=== PATIENT | female | born 1990 | race African-American/Black ===

== ENCOUNTER 2017-01-24 23:28 | Emergency (ER) | payer SELFPAY ==
[~2017-01-24] VITALS: Ht 165.1 cm; Wt 65.0 kg
[~2017-01-24 23:28] MED LIST: KCL20 PO
[2017-01-24 23:36] VITALS: BP 129/79; PULSE 81; RESP 20; TEMP 97.9; O2SAT 97
[2017-01-24] MEDS ORDERED: POTA-163 PO (23:44)
[2017-01-25] MEDS ORDERED: SODIUM CHLORIDE 0.9% FLUSH 5 ML FLUSH IVF PRN (00:15)
[2017-01-25] MEDS ORDERED: SODIUM CHLOR 0.9% 1000 ML INJ 1,000 ML IV ONE (00:15)
[2017-01-25] MEDS ORDERED: methylPREDNISolone SOD SUCC 125 MG/2 ML VIAL IVP ONE (00:15)
[2017-01-25] MEDS: RESP: ALBUTEROL 2.5 MG/IPRATROPIUM 0.5 MG NEB (SCH) INH (00:25)
[2017-01-25] MEDS ORDERED: cefTRIAXone INJ 1,000 MG in SODIUM CHLORIDE 0.9% INJ 100 ML IV ONE (00:30)
--- NOTE | 2017-01-25 00:30 | RADRPT ---
EXAM DATE/TIME: 01/25/2017 00:16 [place] COMPARISON: CHEST SINGLE AP, January 23, 2016, 8:13. INDICATIONS : Shortness of breath. MEDICAL HISTORY : Asthma. SURGICAL HISTORY : None. ENCOUNTER: Initial ACUITY: 1 day PAIN SCORE: 0/10 LOCATION: Bilateral chest FINDINGS: A single view of the chest demonstrates the lungs to be symmetrically aerated without evidence of mas s, infiltrate or effusion. The cardiomediastinal contours are unremarkable. Osseous structures are intact. CONCLUSION: No acute disease. Kt White MD on January 25, 2017 at 0:28 Board Certified Radiologist. This report was verified electronically.
[2017-01-25 00:31] LABS: AUTOMATED NEUTROPHIL # 3.2 TH/MM3 (1.8-7.7); BASOPHIL % 0.5 % (0.0-2.0); EOSINOPHIL # 0.6 TH/MM3 (0-0.4); EOSINOPHIL % 8.4 % (0.0-4.0); HEMATOCRIT 41.8 % (35.0-46.0); HEMO FLAGS DIFF FINAL; LYMPH % 41.7 % (9.0-44.0); LYMPHOCYTE # 3.1 TH/MM3 (1.0-4.8); MEAN CELL VOLUME 88.9 FL (80.0-100.0); MEAN CORPUSCULAR HEMOGLOBIN 30.4 PG (27.0-34.0); MEAN CORPUSCULAR HGB CONC 34.2 % (32.0-36.0); MONO % 5.6 % (0.0-8.0); NEUT % 43.8 % (16.0-70.0); PLATELET COUNT 229 TH/MM3 (150-450); RED CELL DISTRIBUTION WIDTH 14.1 % (11.6-17.2); WHITE BLOOD COUNT 7.3 TH/MM3 (4.0-11.0)
[2017-01-25 00:39] VITALS: O2SAT 99
--- NOTE | 2017-01-25 01:04 | PD ---
HPI Chief Complaint: Respiratory Symptoms Time Seen by Provider: 23:38 Travel History International Travel<30 days: No Contact w/Intl Traveler<30days: No Traveled to known affect area: No History of Present Illness HPI The patient is a 26 year old female who presents to the [facility] emergency department with a history of 1-1/2 weeks of congestion, a productive cough, and shortness of breath. The patient reports that today she ran out of her albuterol nebulizer solution and her rescue inhaler as she has been having to use them much more frequently over the last week and a half. She reports that she has had a clear rhinorrhea. She reports that she does suffer with seasonal allergies that seem to have been worse recently. She reports that her cough is at times productive of clear sputum. The patient denies any recent fevers, neck pain, shortness of breath, abdominal pain, vomiting, diarrhea, urinary symptoms, or neurologic symptoms. LMP: Ended today, started 5 days ago PFSH Past Medical History Narrative Medical The patient's past medical history is significant for allergic rhinitis, asthma. Asthma: Yes Diminished Hearing: No Respiratory: Yes (ASTHMA) Immunizations Current: Yes Influenza Vaccination: No ?: Not LMP: 01/20/17 Menopausal: No : 4 Para: 1 Miscarriage: 1 : 1 Past Surgical History Narrative Surgical The patient reports having a tendon in her right foot repaired. Social History Alcohol Use: Yes Tobacco Use: No Substance Use: No Allergies-Medications (Allergen,Severity, Reaction): Coded Allergies: Cat Dander (Verified Allergy, Severe, 01/24/17) Cultivated Oat Pollen (Verified Allergy, Severe, 01/24/17) Seafood (Verified Allergy, Severe, Swelling, 01/24/17) CRUSTACHEANS Reported Meds & Prescriptions Reported Meds & Active Scripts Active Albuterol Neb (Albuterol Sulfate) 2.5 Mg/3 Ml Neb 2.5 Mg NEB Q4-6H PRN While awake Proair Respiclick Inh (Albuterol Sulfate) 90 Mcg/Act Aerp 2 Puff INH Q4-6H PRN Loratadine 10 Mg Tab 10 Mg PO DAILY 10 Days Medrol Dosepak (Methylprednisolone) 4 Mg Dspk 4 Mg PO DIRECTED Per Pharmacist direction Reported Potassium Chloride ER (Potassium Chloride) 20 Meq Tab 20 Meq PO BID Review of Systems Except as stated in HPI: all other systems reviewed are Neg General / Constitutional: No: Fever Eyes: No: Visual changes HENT: Positive: Rhinitis, Rhinorrhea, Congestion, No: Headaches Cardiovascular: Positive: Dyspnea on exertion, No: Chest Pain or Discomfort Respiratory: Positive: Cough, Shortness of Breath, Wheezing Gastrointestinal: No: Abdominal Pain Genitourinary: No: Dysuria Musculoskeletal: No: Pain Skin: No Rash Neurologic: No: Weakness Psychiatric: No: Depression Endocrine: No: Polydipsia Hematologic/Lymphatic: No: Easy Bruising Physical Exam Narrative General: The patient is a well-developed well-nourished female in no acute distress. Head and Neck exam: Head is normocephalic atraumatic. Eyes: EOMI, pupils are equal round and reactive to light. Nose: Midline septum with pink mucous membranes Mouth: Dentition unremarkable. Moist mucus membranes. Posterior oropharynx is not erythematous. No tonsillar hypertrophy. Uvula midline. Airway patent. Neck: No palpable lymphadenopathy. No nuchal rigidity. No thyromegaly. Cardiovascular: Regular rate and rhythm without murmurs, gallops, or rubs. Lungs: Expiratory wheezes are audible anteriorly and posteriorly with accessory muscle use. No tripoding. The patient does have conversational dyspnea. No paroxysmal abdominal breathing. No crackles or rhonchi audible. Abdomen: Soft, without tenderness to palpation in all 4 quadrants of the abdomen. No guarding, rebound, or rigidity. Normal bowel sounds are audible. Extremities: No clubbing, cyanosis, or edema. 2+ pulses in all 4 extremities. No calf tenderness on palpation. Back: No spinous process tenderness to palpation. No costovertebral angle tenderness to palpation. Neurologic Exam: Grossly nonfocal. Skin Exam: No rash noted. Intact skin that is warm and dry. Data Data Last Documented VS Vital Signs Date Time Temp Pulse Resp B/P Pulse Ox O2 Delivery O2 Flow Rate FiO2 01/25/17 00:39 99 Nasal Cannula 2 01/24/17 23:36 97.9 81 20 129/79 Orders Chest, Single Ap (01/24/17 23:58) Complete Blood Count With Diff (01/25/17 00:14) Basic Metabolic Panel (Bmp) (01/25/17 00:14) Iv Access Insert/Monitor (01/25/17 00:14) Ecg Monitoring (01/25/17 00:14) Oximetry (01/25/17 00:14) Oxygen Administration (01/25/17 00:14) Sodium Chloride 0.9% Flush (Ns Flush) (01/25/17 00:15) Methylprednisolone So Succ Inj (Solumedr (01/25/17 00:15) Albuterol-Ipratropium Neb (Duoneb Neb) (01/25/17 00:15) C-Reactive Protein (Crp) (01/25/17 00:14) Magnesium (Mg) (01/25/17 00:14) Sodium Chlor 0.9% 1000 Ml Inj (Ns 1000 M (01/25/17 00:15) Ceftriaxone Inj (Rocephin Inj) (01/25/17 00:30) Labs Laboratory Tests Test 01/25/17 00:20 White Blood Count 7.3 TH/MM3 Red Blood Count 4.70 MIL/MM3 Hemoglobin 14.3 GM/DL Hematocrit 41.8 % Mean Corpuscular Volume 88.9 FL Mean Corpuscular Hemoglobin 30.4 PG Mean Corpuscular Hemoglobin 34.2 % Concent Red Cell Distribution Width 14.1 % Platelet Count 229 TH/MM3 Mean Platelet Volume 10.4 FL Neutrophils (%) (Auto) 43.8 % Lymphocytes (%) (Auto) 41.7 % Monocytes (%) (Auto) 5.6 % Eosinophils (%) (Auto) 8.4 % Basophils (%) (Auto) 0.5 % Neutrophils # (Auto) 3.2 TH/MM3 Lymphocytes # (Auto) 3.1 TH/MM3 Monocytes # (Auto) 0.4 TH/MM3 Eosinophils # (Auto) 0.6 TH/MM3 Basophils # (Auto) 0.0 TH/MM3 CBC Comment DIFF FINAL Differential Comment Sodium Level 140 MEQ/L Potassium Level 4.0 MEQ/L Chloride Level 104 MEQ/L Carbon Dioxide Level 27.7 MEQ/L Anion Gap 8 MEQ/L Blood Urea Nitrogen 15 MG/DL Creatinine 0.97 MG/DL Estimat Glomerular Filtration 85 ML/MIN Rate Random Glucose 75 MG/DL Calcium Level 9.1 MG/DL Magnesium Level 2.0 MG/DL C-Reactive Protein LESS THAN 0.29 MG/DL MDM Medical Decision Making Medical Screen Exam Complete: Yes Emergency Medical Condition: Yes Medical Record Reviewed: Yes Interpretation(s) Last Impressions Chest X-Ray 01/24/17 0971 Signed Impressions: Service Date/Time: Wednesday, January 25, 2017 00:16 - CONCLUSION: No acute disease. Kt White MD Differential Diagnosis Bronchitis related asthma exacerbation, versus pneumonia, versus allergy related asthma exacerbation. Narrative Course During the course of the patients emergency department visit, the patients history, examination, and differential diagnosis were reviewed with the patient. The patient had IV access obtained and blood work sent for analysis. The patient states on a telemetry monitor with oximetry and blood pressure monitoring. The patient was provided Solu-Medrol 125 mg IV, Rocephin 1 g IV, DuoNeb 3. The patient on reexamination reports feeling improved, her wheezing has resolved. The patients laboratory studies were reviewed and remarkable for a CBC that is unremarkable except for an eosinophilia of 8.4, BNP is unremarkable, C-reactive protein less than 0.29. The knees and 2.0 Radiology studies were reviewed and remarkable for a chest x-ray that shows no acute abnormality. The patient is resting comfortably and feels better, is alert and in no distress. The patients results and examination findings were discussed with her. The repeat examination is unremarkable and benign. The history, exam, diagnostic testing, and current condition do not suggest any significant pathology to warrant further testing, continued ED treatment, admission, or surgical evaluation at this point. The vital signs have been stable. The patient does not have uncontrollable pain, intractable vomiting, or other significant symptoms. The patient's condition is stable and appropriate for discharge. The patient will pursue further outpatient evaluation with a primary care physician or other designated or consulting physician as indicated in the discharge instructions. The patient expressed understanding and was agreeable with this plan. Diagnosis Primary Impression: Asthma Qualified Code: J45.41 - Moderate persistent asthma with acute exacerbation Additional Impression: Seasonal allergies Qualified Code: J30.1 - Seasonal allergic rhinitis due to pollen Referrals: Primary Care Physician 2 days Patient Instructions: Allergies (ED), Asthma (ED), General Instructions Med/Other Pt SpecificInfo: Prescription(s) given Scripts Albuterol Neb 2.5 Mg/3 Ml Neb2.5 Mg NEB Q4-6H PRN (WHEEZING) #1 BOX Ref 0 While awake Prov:Mercedez Lawson MD 01/25/17 Albuterol Powder Inh (Proair Respiclick Inh)90 Mcg/Act Aerp2 Puff INH Q4-6H PRN (SHORTNESS OF BREATH) #1 INHALER Ref 0 Prov:Mercedez Lawson MD 01/25/17 Loratadine 10 Mg Tab10 Mg PO DAILY 10 Days Ref 0 Prov:Mercedez Lawson MD 01/25/17 Methylprednisolone Dosepak (Medrol Dosepak)4 Mg Dspk4 Mg PO DIRECTED #1 DSPK Ref 0 Per Pharmacist direction Prov:Mercedez Lawson MD 01/25/17 Disposition: 01 DISCHARGE HOME Condition: Stable Mercedez Lawson MD Jan 25, 2017 01:04
[2017-01-25 01:08] LABS: ANION GAP 8 MEQ/L (5-15); BICARBONATE 27.7 MEQ/L (21.0-32.0); BLOOD UREA NITROGEN 15 MG/DL (7-18); CHLORIDE 104 MEQ/L (98-107); GLOMERULAR FILTRATION RATE 85 ML/MIN (>89); SODIUM (NA) 140 MEQ/L (136-145)
[2017-01-25] MEDS ORDERED: ALBU1AER5 INH (02:15)
[2017-01-25] MEDS ORDERED: LORA10TA PO (02:15)
[2017-01-25] MEDS ORDERED: MEDR4PAK PO (02:15)
[2017-01-25] MEDS ORDERED: ALBU0.08 NEB (02:15)
== END 2017-01-25 02:31 | disposition home or self-care (01) ==
LOC: NEPE 23:28
DX: J45.909 Unspecified asthma, uncomplicated (principal); J30.1 Allergic rhinitis due to pollen; T78.49XA Other allergy, initial encounter; X58.XXXA Exposure to other specified factors, initial encounter
CPT/HCPCS: 71010; 80048; 83735; 85025; 86140; 94640; 94664; 96365; 96375; 99283; J0696; J2930; J7030

== ENCOUNTER 2017-03-19 22:43 | Emergency (ER) | payer MEDICAID, OTHER ==
[~2017-03-19] VITALS: Ht 165.1 cm; Wt 60.0 kg
[~2017-03-19 22:43] MED LIST changes: +ALBU0.08 NEB; +ALBU1AER5 INH; -KCL20 PO; +LORA10TA PO; +MEDR4PAK PO; +POTA-163 PO
[2017-03-19 22:45] VITALS: BP 116/63; PULSE 81; RESP 15; TEMP 98.7; O2SAT 99
[2017-03-19] MEDS ORDERED: ONDANSETRON ODT 4 MG TAB PO ONE (23:15)
[2017-03-19 23:38] LABS: BACTERIA, URINE RARE /hpf; BLOOD, URINE NEG (NEG); COMMENT (UR) CULTURE INDICATED; CULTURE IF INDICATED CULTURE INDICATED; GLUCOSE,URINE NEG (NEG); HYALINE CAST, URINE 1 /lpf (RARE); KETONE, URINE 10 mg/dL (NEG); MUCUS URINE FEW /lpf (OCC); NITRITE,URINE NEG (NEG); SQUAMOUS EPITHELIAL CELL URINE 5 /hpf (0-5); URINE COLOR YELLOW (YELLW/STRAW)
[2017-03-19] MEDS ORDERED: MACR100C2 PO (23:43)
[2017-03-19] MEDS ORDERED: ZOFR8TAB4 SL (23:43)
--- NOTE | 2017-03-19 23:44 | PD ---
HPI Chief Complaint: Related Problem Time Seen by Provider: 23:09 Travel History International Travel<30 days: No Contact w/Intl Traveler<30days: No Traveled to known affect area: No History of Present Illness HPI Patient is a 26-year-old at approximately 8 weeks based on LMP here with complaint of nausea, vomiting and urinary frequency. Patient has had frequent emesis throughout her . This is different from her previous 2 pregnancies. No abdominal pain, spotting or bleeding. Patient also notes 2 days of small volume urinary frequency but no hematuria, abdominal pain or flank pain. No fevers or chills. She has an appointment with Dr. Barrios in one week [facility] Past Medical History Asthma: Yes Diminished Hearing: No Respiratory: Yes (ASTHMA) Immunizations Current: Yes ?: Menopausal: No : 4 Para: 1 Miscarriage: 1 : 1 Social History Alcohol Use: Yes (usually, not when ) Tobacco Use: No Substance Use: No Allergies-Medications (Allergen,Severity, Reaction): Coded Allergies: Cat Dander (Verified Allergy, Severe, 03/19/17) Cultivated Oat Pollen (Verified Allergy, Severe, 03/19/17) Seafood (Verified Allergy, Severe, Swelling, 03/19/17) CRUSTACHEANS Reported Meds & Prescriptions Reported Meds & Active Scripts Active Zofran Odt (Ondansetron Odt) 8 Mg Tab 8 Mg SL Q8H PRN Macrobid (Nitrofurantoin Monoh/Nitrofur Macro) 100 Mg Cap 100 Mg PO BID 7 Days Albuterol Neb (Albuterol Sulfate) 2.5 Mg/3 Ml Neb 2.5 Mg NEB Q4-6H PRN While awake Proair Respiclick Inh (Albuterol Sulfate) 90 Mcg/Act Aerp 2 Puff INH Q4-6H PRN Review of Systems Except as stated in HPI: all other systems reviewed are Neg Physical Exam Narrative GENERAL: Well-appearing female in no acute distress SKIN: Focused skin assessment warm/dry. HEAD: Normocephalic. EYES: No scleral icterus. No injection or drainage. ENT: Mucous membranes pink and moist. NECK: Supple CARDIOVASCULAR: Regular rate and rhythm. RESPIRATORY: No accessory muscle use. GASTROINTESTINAL: Abdomen soft, non-tender, nondistended. MUSCULOSKELETAL: No obvious deformities. No edema. NEUROLOGICAL: Awake and alert. Normal speech. PSYCHIATRIC: Appropriate mood and affect; insight and judgment normal. Data Data Last Documented VS Vital Signs Date Time Temp Pulse Resp B/P Pulse Ox O2 Delivery O2 Flow Rate FiO2 03/19/17 22:45 98.7 81 15 116/63 99 Room Air Orders Urinalysis - C+S If Indicated (03/19/17 23:09) Ondansetron Odt (Zofran Odt) (03/19/17 23:15) Urine Culture (03/19/17 22:15) Labs Laboratory Tests Test 03/19/17 22:15 Urine Color YELLOW Urine Turbidity HAZY Urine pH 6.0 Urine Specific [place] 1.025 Urine Protein 30 mg/dL Urine Glucose (UA) NEG mg/dL Urine Ketones 10 mg/dL Urine Occult Blood NEG Urine Nitrite NEG Urine Bilirubin NEG Urine Urobilinogen 2.0 MG/DL Urine Leukocyte Esterase LARGE Urine RBC 17 /hpf Urine WBC 69 /hpf Urine Squamous Epithelial 5 /hpf Cells Urine Bacteria RARE /hpf Urine Hyaline Casts 1 /lpf Urine Mucus FEW /lpf Microscopic Urinalysis Comment CULTURE INDICATED MDM Medical Decision Making Medical Screen Exam Complete: Yes Emergency Medical Condition: Yes Medical Record Reviewed: Yes Differential Diagnosis 26-year-old female approximately 8 weeks based on LMP here with nausea , vomiting urinary frequency. Differential includes associated nausea , hyperemesis, UTI and less likely pyelonephritis Narrative Course Patient given Zofran with improvement of her symptoms and able to tolerate liquids. Urinalysis positive for urinary tract infection. Patient will be to his Zofran, Macrobid for home and outpatient OB follow-up in one week as scheduled Diagnosis Primary Impression: Nausea and vomiting during prior to 22 weeks gestation Additional Impression: Urinary tract infection affecting Referrals: [facility] call for appointment Additional Instructions: Zofran as needed for nausea, vomiting. Finish antibiotics as prescribed. Follow-up with [facility] to establish care for this and return to the ER for the warning signs discussed. Med/Other Pt SpecificInfo: Prescription(s) given Scripts Ondansetron Odt (Zofran Odt)8 Mg Tab8 Mg SL Q8H PRN (NAUSEA OR VOMITING) #20 TAB Ref 0 Prov:Haylee Diop MD 03/19/17 Nitrofurantoin Monohydrate Macrocrystals (Macrobid)100 Mg [id number] Mg PO BID 7 Days Ref 0 Prov:Haylee Diop MD 03/19/17 Disposition: 01 DISCHARGE HOME Condition: Stable Haylee Diop MD March 19, 2017 23:44
== END 2017-03-20 00:37 | disposition home or self-care (01) ==
LOC: NEPD 22:43
DX: O21.9 Vomiting of pregnancy, unspecified (principal); O23.41 Unspecified infection of urinary tract in pregnancy, first trimester; J45.909 Unspecified asthma, uncomplicated; Z3A.01 Less than 8 weeks gestation of pregnancy; B95.7 Other staphylococcus as the cause of diseases classified elsewhere
CPT/HCPCS: 81001; 86403; 87077; 87086; 87186; 99284

== ENCOUNTER 2017-06-06 21:25 | Emergency (ER) | payer MEDICAID ==
[~2017-06-06 21:25] MED LIST changes: -LORA10TA PO; +MACR100C2 PO; -MEDR4PAK PO; -POTA-163 PO; +ZOFR8TAB4 SL
--- NOTE | 2017-06-06 22:12 | PD ---
HPI Chief Complaint Decreased movement Date Seen: Jun 06, 2017 Time Seen: 22:00 Travel History International Travel<30 Days: No Contact w/Intl Traveler<30Days: No Known Affected Area: No History of Present Illness HPI 26-year-old 3 para 2 at 21 weeks gestation who is concerned because she had not felt movement all day. She denies any pain, discharge, bleeding. Para: 2 : 3 History Past Medical History Narrative Medical Asthma for which she uses albuterol inhaler Obstetric History Obstetric History 2 term vaginal deliveries Past Surgical History Narrative Surgical Tendon release in her foot Family History Family History: Negative Social History Alcohol Use: No Tobacco Use: No Substance Abuse: No Allergies-Medications (Allergen,Severity, Reaction): Coded Allergies: Cat Dander (Verified Allergy, Severe, 03/19/17) Cultivated Oat Pollen (Verified Allergy, Severe, 03/19/17) Seafood (Verified Allergy, Severe, Swelling, 03/19/17) CRUSTACHEANS Home Meds Active Scripts Ondansetron Odt (Zofran Odt)8 Mg Tab8 Mg SL Q8H PRN (NAUSEA OR VOMITING) #20 TAB Ref 0 Prov:Haylee Diop MD 03/19/17 Nitrofurantoin Monohydrate Macrocrystals (Macrobid)100 Mg [id number] Mg PO BID 7 Days Ref 0 Prov:Haylee Diop MD 03/19/17 Albuterol Neb 2.5 Mg/3 Ml Neb2.5 Mg NEB Q4-6H PRN (WHEEZING) #1 BOX Ref 0 While awake Prov:Mercedez Lawson MD 01/25/17 Albuterol Powder Inh (Proair Respiclick Inh)90 Mcg/Act Aerp2 Puff INH Q4-6H PRN (SHORTNESS OF BREATH) #1 INHALER Ref 0 Prov:Mercedez Lawson MD 01/25/17 Review of Systems Except as stated in HPI: all other systems reviewed are Neg Physical Exam Narrative GENERAL: Well-nourished, well-developed patient. SKIN: Warm and dry. HEAD: Normocephalic and atraumatic. EYES: No scleral icterus. No injection or drainage. ENT: No nasal drainage noted. Mucous membranes pink. Airway patent. NECK: Supple, trachea midline. No JVD. CARDIOVASCULAR: Regular rate and rhythm without murmurs, gallops, or rubs. RESPIRATORY: Breath sounds equal bilaterally. No accessory muscle use. ABDOMEN/GI: Abdomen soft, non-tender, bowel sounds present, no rebound, no guarding Gravid to [-] weeks size Fundal Height: [-U +1] GENITOURINARY: External Genitalia: intact and normal in appearance BUS glands: [-] Cervix: [-] Dilatation: [-] Effacement: [-] Station: [-] Presentation: [-] Membranes: [intact or ruptured] Uterine Contractions: [-] FHT's: Category: [-] Baseline: [160-] Reactive: [-] Variability: [-] Decels: [-] EXTREMITIES: No cyanosis or edema. BACK: Nontender without obvious deformity. No CVA tenderness. NEUROLOGICAL: Awake and alert. Motor and sensory grossly within normal limits. Five out of 5 muscle strength in all muscle groups. Normal speech. Data Data Vital Signs Reviewed: Yes MDM Medical Record Reviewed: Yes Narrative Course / MDM Assessment: 21 week decreased movement Plan: Follow for routine care Diagnosis Diagnosis: Primary Impression: 21 weeks gestation of Additional Impression: Decreased movement Disposition: 01 DISCHARGE HOME Leighton Bonds MD Jun 06, 2017 22:12
== END 2017-06-06 22:32 | disposition home or self-care (01) ==
LOC: HOBED 21:25
DX: O36.8120 Decreased fetal movements, second trimester, not applicable or unspecified (principal); Z3A.21 21 weeks gestation of pregnancy
CPT/HCPCS: 99282